=== PATIENT | female | born 1995 | race American Indian/Alaskan Native ===

== ENCOUNTER 2018-03-14 09:06 | Outpatient (CLI) | payer MEDICAID ==
[2018-03-14 09:18] VITALS: BP 116/73
== END 2018-03-14 10:26 | disposition home or self-care (01) ==
LOC: TRG 09:06
PROVIDERS: ATTEND Obstetrics & Gynecology
DX: O47.1 False labor at or after 37 completed weeks of gestation (principal); Z3A.37 37 weeks gestation of pregnancy; Z88.6 Allergy status to analgesic agent
CPT/HCPCS: 59025